=== PATIENT | female | born 1985 | race Caucasian/White ===

== ENCOUNTER 2019-02-06 14:40 | Emergency (ER) | payer MEDICAID, OTHER ==
[2019-02-06] MEDS ORDERED: Nicotine Inhaler* 10 MG AMP (NF) INH PRN (14:52)
--- NOTE | 2019-02-06 15:04 | ED ---
Psychiatric Complaint - HPI Summary HPI Summary: Pt is a 33 y/o F presenting to the ED brought in by the [facility] on a 9.41. Per conveyor system operator, the pt did not make any statements to him on the way over, and she was calm and cooperative. The pt reports she has been in counseling for multiple years due to problems with her kids, ex-, fraud, and parents. Her ex- is related to a female co-worker of the patients, who the pt states is nice to her but does not have good intentions. There have not been any conflicts between them, but the co-worker knows of the past between her and her . The pt called her counselor and left a message talking about how her co-workers talk about her and make passive aggressive comments, and she stated Can I go out and get a gun and kill somebody because of what theyre doing to me? which is the reason for her presence in the ED today. The pt reports that no one knows she is in the emergency department and specifically asked that it stay that way. The pt reports chronic sinus pain associated with chronic sinus infection, and chronic R-sided abd pain (onset a couple of years ago) described as burning with associated nausea. The pt denies SI/HI or previous hospitalization for psychiatry. She also has a hx of costochondritis. She reports surgical history including ablation and tubal ligation following two C-sections (2008, 2004), tonsillectomy, and adenoidectomy. The pt lives alone, her children reside with her ex-, and she gets visitation. She does not smoke, drink, or do any recreational drugs. She is not part of the pain clinic, and does not take opioids. FHx includes bipolar disorder and anxiety, but no hx of suicides. Pt's therapist, Brenda Bradley [facility], called from the [facility] to advise the [facility] that pt was coming via [facility]. This therapist described that when pt was told that she had to go to the hospital by the crochet beader that pt tried to flee. However, by the time the Telegraph Dispatcher arrived the pt was calm and cooperative. Brenda Bradley's supervisor cereal is Krystle Hanks ([phone]) and that number is answered until 5pm. An after hours number is [phone], however it is unlikely that Brenda or Krystle Hanks would be available after hours, per Brenda. Brenda has known this pt since 2015. Brenda states pt has hx paranoid personality disorder. She also states that pt is "mentally challenged" per their psychologist, however pt can be "convincing" and manipulative" and try to "bluff" someone that she is fine. Brenda feels that pt is a danger to herself because she is not sleeping and not eating. She also believes that pt is a danger to others with her threats against her co-worker and her ex-. Pt left two voicemails on Brenda's work phone at 0300 in the morning stating that she "wanted to beat up her coworker", and also made a threat against her ex- that she wanted to "buy a gun or a baseball bat to murder someone". Yet , at the same time as making these threats, pt states she is "being harassed". Brenda states pt is currently on no psychiatric medications, although she used to be on anxiety medications. Pt's PCP is at the [facility] in [place]. - History Of Current Complaint Chief Complaint: EDMentalHealth Accompanied By: [facility] is alone[facility] H[facility] Obtained From: Patient, Other: - pt's therapist Brenda Bradley [facility] (see HPI) , also [facility] who transported pt. Hx Last Menstrual Period: none since ablation ?: No Onset/Duration: Gradual Onset, Lasting Minutes, Resolved Timing: Minutes Severity Initially: Mild Severity Currently: None - denies SI/HI now, in ED Character: Anxious, Angry, Frustrated Aggravating Factor(s): Recent Stress Alleviating Factor(s): Nothing Associated Signs And Symptoms: Positive: Hostile Related History: Positive For: Prior Psychiatric Issues Has Suicidal: Denies: Thoughts Has Homicidal: Reports: Thoughts Recent Stressor(s): social complications at work; pt states homicidal thoughts have resolved - Allergies/Home Medications Allergies/Adverse Reactions: Allergies Allergy/AdvReac Type Severity Reaction Status Date / Time red dye Allergy Anaphylatic Verified 02/06/19 14:55 Shock Sulfa (Sulfonamide Allergy Altered Verified 02/06/19 14:55 Antibiotics) Mental Status PMH/Surg Hx/FS Hx/Imm Hx Previously Healthy: No - chronic sinus infection, chronic RLQ abd pain, costochondritis Respiratory History: Reports: Other Respiratory Problems/Disorders - chronic sinus infection GI History: Reports: Other GI Disorders - chronic RLQ abd pain x 2 yrs Musculoskeletal History: Reports: Other Musculoskeletal History - costochondritis Neurological History: Reports: Hx Developmental Delay - per pt's therapist based on Yo psychologist Psychiatric History: Reports: Hx Anxiety, Other Psychiatric Issues/Disorders - hx paranoid personality disorder Denies: Hx Substance Abuse - Surgical History Surgery Procedure, Year, and Place: Ablation, tubal ligation following two C- sections (2008, 2004), tonsillectomy, adenoidectomy. Infectious Disease History: No Infectious Disease History: Denies: Traveled Outside the [place] in Last 30 Days - Family History Known Family History: Positive: Other - bipolar disorder, anxiety. negative: suicide - Social History Lives: Alone Alcohol Use: None Hx Substance Use: No Substance Use Type: Reports: None Hx Tobacco Use: No Smoking Status (MU): Never Smoked Tobacco Review of Systems Constitutional: Negative Positive: Other - sinus pain Cardiovascular: Negative Respiratory: Negative Positive: Abdominal Pain, Nausea Positive: no symptoms reported, hematuria - in ED course pt states she had one episode of "pink tinged urine". Musculoskeletal: Negative Skin: Negative Neurological: Negative Positive: Anxious All Other Systems Reviewed And Are Negative: Yes Physical Exam - Summary Physical Exam Summary: Appearance: Well-appearing, no pain distress, well-nourished Skin: Warm, color reflects adequate perfusion, dry Head: Normal Head/Face inspection, atraumatic Eyes: Conjunctiva clear, PERRL, EOMI, no nystagmus ENT: Normal inspection Neck: Supple, no nodes, no JVD Respiratory: Lungs clear, normal breath sounds, no respiratory distress Cardio: RRR, No murmur, pulses normal, brisk capillary refill Abdomen: Soft, minimal tenderness RLQ, no guarding, no rebound, no masses, no CVAT Bowel sounds: Present Musculoskeletal: Strength Intact/ROM intact, no calf tenderness, no edema. Psychological: calm and cooperative. Good eye contact. Neuro: Alert, muscle tone normal, no focal deficit, speech clear Triage Information Reviewed: Yes Vital Signs On Initial Exam: Initial Vitals Temp Pulse Resp BP Pulse Ox 98.3 F 81 18 132/62 100 02/06/19 14:45 02/06/19 14:45 02/06/19 14:45 02/06/19 14:45 02/06/19 14:45 Vital Signs Reviewed: Yes Diagnostics - Vital Signs Vital Signs Temp Pulse Resp BP Pulse Ox 02/06/19 14:45 98.3 F 81 18 132/62 100 - Laboratory Result Diagrams: 02/06/19 15:57 02/06/19 15:57 Lab Statement: Any lab studies that have been ordered have been reviewed, and results considered in the medical decision making process. Re-Evaluation - Re-Evaluation 1st re-eval Re-Evaluation Time: 17:27 Change: Unchanged Comment: Pt is medically cleared for MHE. Discussed results with patient. Second Eval Re-Evaluation Time: 19:00 Change: Unchanged Comment: Pt remains calm and cooperative. Has consumed her supper tray. Reports that she ambulated to the , and had an episode of pink tinged urine that was "foul smelling" UA collected earlier is entirely negative. Pt states she has had this blood in the past. Course/Dx - Course Course Of Treatment: Pt is a 33 y/o F presenting to the ED brought in by the [facility] on a 9.41. The pt reports she has been in counseling for multiple years due to problems with her kids, ex-, fraud, and parents. The pt called her counselor and left a message talking about how her co -workers talk about her and make passive aggressive comments, and she stated Can I go out and get a gun and kill somebody because of what theyre doing to me ? which is the reason for her presence in the ED today. The pt reports that no one knows she is in the emergency department and specifically asked that it stay that way. Pt does not want anyone who calls to know that she is in the ED. The pt reports chronic sinus pain associated with chronic sinus infection, and chronic R-sided abd pain (onset a couple of years ago) described as burning with associated nausea. The pt denies SI/HI or previous hospitalization for psychiatry. She also has a hx of costochondritis. The pt lives alone, her children reside with her ex-, and she gets visitation. She does not smoke , drink, or do any recreational drugs. x includes bipolar disorder and anxiety , but no hx of suicides. Pt's counselor Brenda called ahead to state that pt was a flight risk, that she had tried to run from their office, but did cooperate with JOVI Santos. Brenda states pt is a danger to herself and others because she has not eaten or slept in days, and pt left a VM on Brenda's machine making threats against her co-worker and her , by stating the wanted to buy a gun or baseball bat to murder someone. Nurses' notes reviewed. Pt's medications reviewed this visit. Pt's allergies reviewed. In the ED course pt has remained calm, cooperative, coherent, and denies SI/HI. Pt received no medications in the ED, and takes no prescribed medications, and denies substance abuse. Pt is medically cleared for MHE as of 1726. The pt will be signed out to Dr. Braxton pending MHE. - Differential Dx/Clinical Impression Differential Diagnosis/HQI/PQRI: Positive: Acute Psychosis, Anxiety, Bipolar Disorder, Homicidal Ideation Provider Diagnosis: Homicidal ideation, Paranoid personality disorder, Developmental delay, mild Discharge - Sign-Out/Discharge Documenting (check all that apply): Sign-Out Patient Signing out patient TO: Tuan Braxton - at 1900 02/06/19 Patient Received Moderate/Deep Sedation with Procedure: No - Discharge Plan Condition: Stable Referrals: Lyndsey Light [Primary Care Provider] - - Billing Disposition and Condition Condition: STABLE - Attestation Statements Document Initiated by Scribe: Yes Documenting Scribe: Lizzy Bateman Provider For Whom Jamshid is Documenting (Include Credential): Dr. Portia Marcelino MD. Scribe Attestation: Lizzy Gruber, scribed for Dr. Portia Marcelino MD. on 02/06/19 at 2109. Scribe Documentation Reviewed: Yes Provider Attestation: The documentation as recorded by the scribe, Lizzy Bateman accurately reflects the service I personally performed and the decisions made by me, Dr. Portia Marcelino MD. Status of Scribe Document: Viewed
[2019-02-06] MEDS ORDERED: Mouth Piece, Nicotine* 1 EACH CARTRIDGE INH PRN (15:28)
[2019-02-06 16:17] LABS: ABS Basophils 0 10^3/ul (0-0.2); ABS Eosinophils 0.2 10^3/ul (0-0.6); ABS Lymphocytes 1.8 10^3/ul (1.0-4.8); ABS Monocytes 0.3 10^3/ul (0-0.8); ABS Neutrophils 4.6 10^3/ul (1.5-7.7); ABS Nucleated RBC 0 10^3/ul; Eosinophil % 2.5 %; Hematocrit 37 % (33-41); Hemoglobin 12.6 g/dL (12.0-16.0); Lymphocyte % 25.8 %; Mean Corpuscular HGB Conc 34 g/dL (31-36); Mean Corpuscular Hemoglobin 30 pg (27-31); Mean Corpuscular Volume 89 fL (80-97); Mean Platelet Volume 9.3 fL (7.4-10.4); Nucleated Red Blood Cells % 0; Platelet Count 272 10^3/uL (150-450); Red Blood Count 4.17 10^6 /uL (3.70-4.87); Red Cell Distribution Width 13 % (10.5-15); White Blood Count 6.9 10^3/uL (3.5-10.8)
[2019-02-06 16:28] LABS: ALT 14 U/L (7-52); AST 16 U/L (13-39); Albumin 4.4 g/dL (3.2-5.2); Albumin/Globulin Ratio 1.5 (1-3); Alkaline Phosphatase 71 U/L (34-104); Anion Gap 7 mmol/L (2-11); BUN/Creatinine Ratio 34.6 (8-20); Blood Urea Nitrogen 18 mg/dL (6-24); CO2 Carbon Dioxide 24 mmol/L (22-32); Calcium 8.6 mg/dL (8.6-10.3); Chloride 107 mmol/L (101-111); EGFR African American 163.3 (>60); Globulin 2.9 g/dL (2-4); Glucose 92 mg/dL (70-100); Potassium 3.9 mmol/L (3.5-5.0); Sodium 138 mmol/L (135-145); Total Protein 7.3 g/dL (6.4-8.9)
[2019-02-06 16:32] LABS: HCG Pregnancy < 0.60 mIU/mL
[2019-02-06 16:39] LABS: Acetaminophen < 15 mcg/mL; Alcohol < 10 mg/dL (<10); Salicylate < 2.50 mg/dL (<30)
[2019-02-06 16:44] LABS: Urine Appearance Cloudy; Urine Bilirubin Negative (Negative); Urine Blood Negative (Negative); Urine Color Yellow; Urine Glucose Negative (Negative); Urine Ketones Negative (Negative); Urine Nitrite Negative (Negative); Urine Protein Negative (Negative); Urine Specific Gravity 1.031 (1.010-1.030); Urine Urobilinogen Negative (Negative)
[2019-02-06 16:48] LABS: Barbiturates Urine Screen None Detected (None Detect); Benzodiazepine Urine Screen None Detected (None Detect); Urine Cannabinoids Screen None Detected (None Detect)
[2019-02-06 16:53] LABS: TSH (Thyroid Stimulating Horm) 1.47 mcIU/mL (0.34-5.60)
--- NOTE | 2019-02-06 21:12 | ED ---
Re-Evaluation - Re-Evaluation 1st re-eval Re-Evaluation Time: 17:27 Change: Unchanged Comment: Pt is medically cleared for MHE. Discussed results with patient. Second Eval Re-Evaluation Time: 19:00 Change: Unchanged Comment: Pt remains calm and cooperative. Has consumed her supper tray. Reports that she ambulated to the BR, and had an episode of pink tinged urine that was "foul smelling" UA collected earlier is entirely negative. Pt states she has had this blood in the past. Course/Dx - Course Course Of Treatment: Pt is a 33 y/o F presenting to the ED brought in by the [facility] on a 9.41. The pt reports she has been in counseling for multiple years due to problems with her kids, ex-, fraud, and parents. The pt called her counselor and left a message talking about how her co -workers talk about her and make passive aggressive comments, and she stated Can I go out and get a gun and kill somebody because of what theyre doing to me ? which is the reason for her presence in the ED today. The pt reports that no one knows she is in the emergency department and specifically asked that it stay that way. The pt reports chronic sinus pain associated with chronic sinus infection, and chronic R-sided abd pain (onset a couple of years ago) described as burning with associated nausea. The pt denies SI/HI or previous hospitalization for psychiatry. She also has a hx of costochondritis. The pt lives alone, her children reside with her ex-, and she gets visitation. She does not smoke, drink, or do any recreational drugs. FHx includes bipolar disorder and anxiety, but no hx of suicides. Nurses' notes reviewed. Pt's medications reviewed this visit. Pt's allergies reviewed. Pt is medically cleared for MHE as of 1726. The pt will be signed out to Dr. Braxton pending MHE. - Diagnoses Provider Diagnoses: Homicidal ideation, Paranoid personality disorder, Developmental delay, mild Discharge - Sign-Out/Discharge Documenting (check all that apply): Patient Departure Receiving patient FROM: Portia Marcelino Patient Received Moderate/Deep Sedation with Procedure: No - Discharge Plan Condition: Stable Disposition: HOME-RECOMMEND TO ED Patient Education Materials: Depression (ED), Anxiety (ED) Referrals: Gabriel HUDSON,Lyndsey [Primary Care Provider] - Additional Instructions: Per completion of a mental health evaluation, you are cleared for release and do not require inpatient psychiatric hospitalization at this time. Please go to nearest emergency room or call 911 if safety concerns arise or condition worsens. Important Phone Numbers: [facility] [phone] Suicide Prevention and Crisis Services........................ [phone] [place] Suicide Prevention [facility]eline............................ [phone] ([phone]) [facility]....................... [phone] Alcoholics Anonymous............................................... [phone] [facility].............. [phone] [facility] [place] [employer].............................................. [phone] - Billing Disposition and Condition Condition: STABLE Disposition: Home-Recommend to ED - Attestation Statements Document Initiated by Jamshid: Yes Documenting Scribe: Wes bedoya Provider For Whom Jamshid is Documenting (Include Credential): MD Jamshid Walton Attestation: I, cristela Tylered for Tuan Braxton MD on 02/26/19 at 1113. Scribe Documentation Reviewed: Yes Provider Attestation: The documentation as recorded by the Wes bedoya accurately reflects the service I personally performed and the decisions made by me, Tuan Braxton MD Status of Scribe Document: Viewed
[2019-02-07 01:04] VITALS: BP 122/68
== END 2019-02-07 01:03 | disposition home health service (06) ==
LOC: ED 14:40
DX: R45.850 Homicidal ideations (principal); F60.0 Paranoid personality disorder; R62.50 Unspecified lack of expected normal physiological development in childhood; Z88.2 Allergy status to sulfonamides
CPT/HCPCS: 36415; 80053; 80307; 80320; 80329; 81003; 84443; 84702; 85025; 99284; G0480